=== PATIENT | male | born 1995 | race African-American/Black ===

== ENCOUNTER 2020-07-15 11:43 | Emergency (ER) | payer OTHER ==
--- NOTE | 2020-07-15 12:03 | ER ---
Nurse's Notes [facility] Name: Bj Driscoll Age: 24 yrs Sex: Male : 1995 Arrival Date: 07/15/2020 Time: 11:47 Bed 19 Private MD: Diagnosis: Hemorrhoids Presentation: 07/15 11:52 Chief complaint: Patient states: was seen at [facility] yesterday and was told he had a bad iw hemorrhoid that would need surgery , was unable to get a referral from his PCP. Coronavirus screen: At this time, the client does not indicate any symptoms associated with coronavirus-19. Ebola Screen: Patient negative for fever greater than or equal to 101.5 degrees Fahrenheit, and additional compatible Ebola Virus Disease symptoms Patient denies exposure to infectious person. Patient denies travel to an Ebola-affected area in the 21 days before illness onset. No symptoms or risks identified at this time. Initial Sepsis Screen: Does the patient meet any 2 criteria? No. Patient's initial sepsis screen is negative. Does the patient have a suspected source of infection? No. Patient's initial sepsis screen is negative. Risk Assessment: Do you want to hurt yourself or someone else? Patient reports no desire to harm self or others. Onset of symptoms was July 06, 2020. 11:52 Method Of Arrival: Ambulatory iw 11:52 Acuity: ROSI 3 iw Triage Assessment: 11:55 General: Appears in no apparent distress. uncomfortable, Behavior is cooperative, bp appropriate for age, anxious. Pain: Complains of pain in buttocks. EENT: No deficits noted. Neuro: No deficits noted. Cardiovascular: No deficits noted. Respiratory: No deficits noted. GI: Reports hemorrhoids. : No signs and/or symptoms were reported regarding the genitourinary system. Derm: No deficits noted. Musculoskeletal: No deficits noted. Historical: - Allergies: 11:54 No Known Allergies; iw - Home Meds: 11:54 None [Active]; iw - PMHx: 11:54 None; iw - PSHx: 11:54 Tonsillectomy; iw - Immunization history:: Adult Immunizations up to date. - Social history:: Smoking status: Patient denies any tobacco usage or history of. Screenin:55 Abuse screen: Denies threats or abuse. Denies injuries from another. Nutritional bp screening: No deficits noted. Tuberculosis screening: No symptoms or risk factors identified. Fall Risk None identified. Assessment: 11:55 General: SEE TRIAGE NOTE. bp 12:09 Reassessment: D/C ON HOLD FOR MED DELIVERY. bp 12:49 Reassessment: MEDICATION OBTAINED FROM PHARMACY. PT D/C HOME AMBULATORY, DX WITH bp HEMORRHOIDS. Vital Signs: 11:52 BP 143 / 70; Pulse 66; Resp 16; Temp 98.1; Pulse Ox 100% on R/A; Weight 70.31 kg; iw Height 5 ft. 5 in. (165.10 cm); Pain 9/10; 12:49 BP 135 / 65; Pulse 72; Resp 17; Temp 98.1; Pulse Ox 100% ; bp 11:52 Body Mass Index 25.79 (70.31 kg, 165.10 cm) iw ED Course: 11:47 Patient arrived in ED. as 11:54 Triage completed. iw 11:54 Arm band placed on. iw 11:55 Owen Hinds, RN is Primary Nurse. bp 11:55 Patient has correct armband on for positive identification. Bed in low position. Call bp light in reach. Side rails up X2. 11:57 Angela Mcpherson [facility]C [facility]. snw 11:57 Dav De La Torre MD is Attending Physician. snw 12:01 Calixto Gomes MD is Referral Physician. snw 12:49 No provider procedures requiring assistance completed. Patient did not have IV access bp during this emergency room visit. Administered Medications: 12:50 Drug: Anusol Ointment 1 inches Route: KS; bp 12:51 Follow up: Response: Medication administered at discharge. bp 12:50 Drug: Anusol-HC 25 mg 25 mg Route: KS; bp 12:51 Follow up: Response: Medication administered at discharge. bp 12:50 Drug: Miralax 17 grams Route: PO; bp 12:50 Follow up: Response: Medication administered at discharge. bp Outcome: 12:02 Discharge ordered by . snw 12:49 Discharged to home ambulatory. bp 12:49 Condition: stable 12:49 Discharge instructions given to patient, Instructed on discharge instructions, follow up and referral plans. medication usage, Demonstrated understanding of instructions, follow-up care, medications, Prescriptions given X 1. 12:51 Patient left the ED. bp Signatures: Angela Mcpherson, PAUL-C ORACLE SPECIALIST-Csnw Cleopatra Fraga as Sunshine Zaragoza, RN RN iw Owen Hinds, BRAEDEN RN bp
--- NOTE | 2020-07-15 12:03 | EDPHYS ---
Physician Documentation [facility] Name: Bj Driscoll Age: 24 yrs Sex: Male : 1995 Arrival Date: 07/15/2020 Time: 11:47 Bed 19 Private MD: AJAY Physician Dav De La Torre HPI: 07/15 12:14 This 24 yrs old Black Male presents to ER via Ambulatory with complaints of Hemorrhoids.snw 12:14 Onset: The symptoms/episode began/occurred gradually. Associated signs and symptoms: snw Pertinent positives: rectal pain. The patient has not experienced similar symptoms in the past. The patient has been recently seen by a physician: with similar presenting complaints, told to see surgeon. Historical: - Allergies: 11:54 No Known Allergies; iw - Home Meds: :54 None [Active]; iw - PMHx: :54 None; iw - PSHx: 11:54 Tonsillectomy; iw - Immunization history:: Adult Immunizations up to date. - Social history:: Smoking status: Patient denies any tobacco usage or history of. ROS: 12:13 Constitutional: Negative for fever, chills, and weight loss, Eyes: Negative for injury, snw pain, redness, and discharge, ENT: Negative for injury, pain, and discharge, Neck: Negative for injury, pain, and swelling, Cardiovascular: Negative for chest pain, palpitations, and edema, Respiratory: Negative for shortness of breath, cough, wheezing, and pleuritic chest pain, Abdomen/GI: Negative for abdominal pain, nausea, vomiting, diarrhea, and constipation, rectal pain, hemorrhoids Back: Negative for injury and pain, : Negative for injury, bleeding, discharge, and swelling, MS/Extremity: Negative for injury and deformity, Skin: Negative for injury, rash, and discoloration, Neuro: Negative for headache, weakness, numbness, tingling, and seizure, Psych: Negative for depression, anxiety, suicide ideation, homicidal ideation, and hallucinations. Exam: 12:13 Constitutional: This is a well developed, well nourished patient who is awake, alert, snw and in no acute distress. Head/Face: Normocephalic, atraumatic. Eyes: Pupils equal round and reactive to light, extra-ocular motions intact. Lids and lashes normal. Conjunctiva and sclera are non-icteric and not injected. Cornea within normal limits. Periorbital areas with no swelling, redness, or edema. ENT: Nares patent. No nasal discharge, no septal abnormalities noted. Tympanic membranes are normal and external auditory canals are clear. Oropharynx with no redness, swelling, or masses, exudates, or evidence of obstruction, uvula midline. Mucous membranes moist. Neck: Trachea midline, no thyromegaly or masses palpated, and no cervical lymphadenopathy. Supple, full range of motion without nuchal rigidity, or vertebral point tenderness. No Meningismus. Chest/axilla: Normal chest wall appearance and motion. Nontender with no deformity. No lesions are appreciated. Cardiovascular: Regular rate and rhythm with a normal S1 and S2. No gallops, murmurs, or rubs. Normal PMI, no JVD. No pulse deficits. Respiratory: Lungs have equal breath sounds bilaterally, clear to auscultation and percussion. No rales, rhonchi or wheezes noted. No increased work of breathing, no retractions or nasal flaring. Abdomen/GI: Soft, non-tender, with normal bowel sounds. No distension or tympany. No guarding or rebound. No evidence of tenderness throughout. Back: No spinal tenderness. No costovertebral tenderness. Full range of motion. Skin: Warm, dry with normal turgor. Normal color with no rashes, no lesions, and no evidence of cellulitis. MS/ Extremity: Pulses equal, no cyanosis. Neurovascular intact. Full, normal range of motion. Neuro: Awake and alert, GCS 15, oriented to person, place, time, and situation. Cranial nerves II-XII grossly intact. Motor strength 5/5 in all extremities. Sensory grossly intact. Cerebellar exam normal. Normal gait. Vital Signs: 11:52 BP 143 / 70; Pulse 66; Resp 16; Temp 98.1; Pulse Ox 100% on R/A; Weight 70.31 kg; iw Height 5 ft. 5 in. (165.10 cm); Pain 9/10; 12:49 BP 135 / 65; Pulse 72; Resp 17; Temp 98.1; Pulse Ox 100% ; bp 11:52 Body Mass Index 25.79 (70.31 kg, 165.10 cm) iw MDM: 11:57 Patient medically screened. snw 12:15 Data reviewed: vital signs, nurses notes. Data interpreted: Pulse oximetry: on room air snw is 100 %. Interpretation: normal. Counseling: I had a detailed discussion with the patient and/or guardian regarding: the historical points, exam findings, and any diagnostic results supporting the discharge/admit diagnosis, the need for outpatient follow up, for definitive care, to return to the emergency department if symptoms worsen or persist or if there are any questions or concerns that arise at home. Special discussion: Based on the history and exam findings, there is no indication for further emergent testing or inpatient evaluation. I discussed with the patient/guardian the need to see the general surgeon for further evaluation of the symptoms. Administered Medications: 12:50 Drug: Anusol Ointment 1 inches Route: NE; bp 12:51 Follow up: Response: Medication administered at discharge. bp 12:50 Drug: Anusol-HC 25 mg 25 mg Route: NE; bp 12:51 Follow up: Response: Medication administered at discharge. bp 12:50 Drug: Miralax 17 grams Route: PO; bp 12:50 Follow up: Response: Medication administered at discharge. bp Disposition: 07/16 08:28 Co-signature as Attending Physician, Dav De La Torre MD I agree with the assessment and aurelia plan of care. Disposition: 07/15/20 12:02 Discharged to Home. Impression: Hemorrhoids. - Condition is Stable. - Discharge Instructions: Hemorrhoids, How to Take a Sitz Bath, Rehydration, Adult. - Prescriptions for Proctofoam HC 1- 1 % Rectal foam - insert 1 applicatorful by RECTAL route 3 times per day; 1 Container. - Medication Reconciliation Form, Thank You Letter, Antibiotic Education, Prescription Opioid Use form. - Follow up: Calixto Gomes MD; When: 2 - 3 days; Reason: Recheck today's complaints, Continuance of care. Signatures: Dav De La Torre MD MD cha Waters, Shelly, HAND SPRAYER-C HAND SPRAYER-Csnw Sunshine Zaragoza, RN RN Owen Anders RN RN bp Corrections: (The following items were deleted from the chart) 07/15 12:51 12:02 07/15/2020 12:02 Discharged to Home. Impression: Hemorrhoids. Condition is bp Stable. Forms are Medication Reconciliation Form, Thank You Letter, Antibiotic Education, Prescription Opioid Use. Follow up: Calixto Gomes; When: 2 - 3 days; Reason: Recheck today's complaints, Continuance of care. snw
[2020-07-15] MEDS ORDERED: FORMULATION-R RECTAL 30GM PR ONE (12:15)
[2020-07-15] MEDS ORDERED: HYDROCORTISONE ACETATE 25MG SUPP PR ONE (12:15)
[2020-07-15] MEDS ORDERED: POLYETHYL GLY 3350 17 GM/DOSE ONE (12:21)
[2020-07-20 17:49] VITALS: TEMP 98.1; O2SAT 100
[2020-07-20 17:51] VITALS: BP 135/65
== END 2020-07-15 12:51 | disposition home or self-care (01) ==
LOC: ER 11:43
DX: K64.9 Unspecified hemorrhoids (principal)
CPT/HCPCS: 99283

== ENCOUNTER 2022-04-28 22:49 | Emergency (ER) | payer OTHER ==
--- NOTE | 2022-04-28 23:06 | ER ---
Nurse's Notes [facility] Name: Bj Driscoll Age: 26 yrs Sex: Male : 1995 Arrival Date: 04/28/2022 Time: 22:51 Bed Waiting Private MD: Diagnosis: Presentation: 04/28 22:55 Chief complaint: Piece of hammer broke while working and hit right wrist, c/o wrist hb pain 7/10. Pt reports using a magnet to see if any metal was inside, and the magnet stuck to his wrist. Coronavirus screen: At this time, the client does not indicate any symptoms associated with coronavirus-19. Ebola Screen: No symptoms or risks identified at this time. Risk Assessment: Do you want to hurt yourself or someone else? Patient reports no desire to harm self or others. Onset of symptoms was April 28, 2022. 22:55 Method Of Arrival: Ambulatory hb 22:55 Acuity: ROSI 3 hb Historical: - Allergies: 22:57 No Known Allergies; hb - Home Meds: 22:57 None [Active]; hb - PMHx: 22:57 None; hb - PSHx: 22:57 Tonsillectomy; Adenoid excision; hb - Immunization history:: Last tetanus immunization: unknown. - Social history:: Smoking status: Patient denies any tobacco usage or history of. Vital Signs: 22:55 BP 137 / 72; Pulse 58; Resp 16; Temp 97.8; Pulse Ox 100% on R/A; Weight 68.04 kg; hb Height 5 ft. 5 in. (165.10 cm); Pain 7/10; 22:55 Body Mass Index 24.96 (68.04 kg, 165.10 cm) hb ED Course: 22:51 Patient arrived in ED. bp1 22:57 Triage completed. hb 22:57 Arm band placed on. hb Administered Medications: No medications were administered Outcome: 23:05 Patient left the ED. hb Signatures: Fransisca Gutierrez, RN RN Karime Walden bp1
[2022-04-30 09:19] VITALS: BP 137/72; TEMP 97.8; O2SAT 100
== END 2022-04-28 23:05 | disposition left against medical advice (07) ==
LOC: ER 22:49
DX: Z53.21 Procedure and treatment not carried out due to patient leaving prior to being seen by health care provider (principal)
CPT/HCPCS: 99281